=== PATIENT | female | born 1970 | race African-American/Black ===

== ENCOUNTER 2018-04-24 13:55 | Emergency (ER) | payer BC ==
[~2018-04-24] VITALS: Ht 175.3 cm; Wt 125.0 kg
[2018-04-24] MEDS ORDERED: KETOROLAC 60MG/2ML VIAL IM ONE (15:15)
[2018-04-24 16:01] VITALS: BP 168/93
== END 2018-04-24 16:03 | disposition home or self-care (01) ==
LOC: ER 13:55
DX: M54.5 Low back pain (principal); R03.0 Elevated blood-pressure reading, without diagnosis of hypertension; E66.9 Obesity, unspecified; Z68.41 Body mass index [BMI] 40.0-44.9, adult; F12.90 Cannabis use, unspecified, uncomplicated
CPT/HCPCS: 81025; 96372; 99283; J1885